=== PATIENT | female | born 1950 | race Hispanic/Latino ===

== ENCOUNTER 2018-03-19 10:52 | Inpatient (IN) | payer MEDICARE ==
[~2018-03-19 10:52] MED LIST: Iopamidol 370 76% 100 ML VIAL ONE; Iopamidol 370 76% 50 ML VIAL FS ONE
[2018-03-19 11:08] LABS: #Lymphocytes 0.7 thou/uL (1.20-3.40); #Monocytes 0.3 thou/uL (0.11-0.59); #Neutrophils 5.4 thou/uL (1.40-6.50); %Basophils 0.2 % (0.0-1.0); %Eosinophils 0.1 % (0.0-10.0); %Lymphocytes 10.3 % (21.0-51.0); %Monocytes 4.9 % (0.0-10.0); %Neutrophils 84.5 % (42.0-75.0); Hemoglobin 15.9 g/dL (12.0-16.0); Mean Corpuscular HGB CONC 32.6 g/dL (32.0-36.0); Mean Corpuscular Volume 89.2 fL (78.0-98.0); Mean Platelet Volume 8.5 fL (7.4-10.4); Platelet Count 236 thou/uL (130-400); RBC Distribution Width 11.8 % (11.5-14.5); Red Blood Cell (RBC) Count 5.46 mill/uL (4.20-5.40); White Blood Cell (WBC) Count 6.3 thou/uL (4.8-10.8)
[2018-03-19 11:14] LABS: INR-International Normal Ratio 1.1; Prothrombin Time 13.9 SEC (12.0-14.7)
[2018-03-19] MEDS ORDERED: Verapamil 5 MG/2 ML VIAL ONE (11:22)
[2018-03-19] MEDS ORDERED: Lidocaine 1% (PF) 30 ML VIAL ONE (11:22)
[2018-03-19] MEDS ORDERED: Nitroglycerin 100MG/250ML BOT 250 ML ONE (11:22)
[2018-03-19] MEDS ORDERED: Heparin 10,000 UNITS/1 ML VIAL ONE (11:22)
--- NOTE | 2018-03-19 11:26 | RAD ---
SINGLE VIEW OF THE CHEST: Comparison: None. History: Chest pain. FINDINGS: Single view of the chest shows a normal sized cardiomediastinal silhouette. There is no evidence of c onsolidation, mass, or pleural effusion. The bones are unremarkable. IMPRESSION: No evidence of acute cardiopulmonary disease. POS: TPC
[2018-03-19 11:50] LABS: ALT (SGPT) 16 U/L (8-55); AST (SGOT) 39 U/L (5-34); Albumin 4.1 g/dL (3.4-4.8); Alkaline Phosphatase 107 U/L (40-150); Anion Gap 18 mmol/L (10-20); BUN (Urea Nitrogen) 16 mg/dL (9.8-20.1); Calc. Creatinine Clearance 0 mL/min (70-130); Calcium 10.2 mg/dL (7.8-10.44); Carbon Dioxide 22 mmol/L (23-31); Chloride 98 mmol/L (98-107); Estimated GFR-MDRD 57; Globulin 3.8 g/dL (2.4-3.5); Glucose 446 mg/dL (80-115); Potassium 4.2 mmol/L (3.5-5.1); Protein, Total 7.9 g/dL (6.0-8.3); Sodium 134 mmol/L (136-145)
--- NOTE | 2018-03-19 11:56 | HP ---
DATE OF ADMISSION: 03/19/2018 INDICATION FOR ADMISSION: This is a 68-year-old female with acute anterior myocardial infarction. HISTORY OF PRESENT ILLNESS: This is a very unfortunate 68-year-old female, who has been incarcerated for the last 10-15 days. Woke up this morning around 07:00 with chest pain, actually it started in her shoulder area in the back on the left side and then radiated to the front. She was then seen in the emergency room. Actually, by the time she was in the emergency room and she was given some treat ment, her blood pressure was high, also blood sugar was over 500. Her pain is now resolved, but EKG changes still remain with ST-segment elevation anteriorly with reciprocal changes inferiorly, but at this time she is pain free. PAST MEDICAL HISTORY: Significant for a hysterectomy, cholecystectomy, and umbilical hernia repair. SOCIAL HISTORY: She is . She has 6 children. No heart disease. There is no history of alc ohol or tobacco abuse. FAMILY HISTORY: Noncontributory. No early heart disease was noted. ALLERGIES: Allergy to PENICILLIN. She was on no prior medications prior to being seen in the emerge ncy room. REVIEW OF SYSTEMS: A 12-point review of systems was completely unremarkable except for what was note d in the history of present illness with chest discomfort. PHYSICAL EXAMINATION: GENERAL: Reveals a well-developed, well-nourished female, in no acute distress at this time. VITAL SIGNS: Her blood pressure is 160/94 and heart rate is 85. HEENT EXAM: Shows her head to be normocephalic and atraumatic. Carotid pulses are present. There a re no bruits. CHEST: Clear to auscultation without rales, rhonchi, or wheezing. CARDIOVASCULAR EXAM: Reveals a regular rate and rhythm with normal S1 and S2. There is no S3 or S4. There are no significant murmurs, heaves, thrills, bruits, or rubs. ABDOMINAL EXAM: Soft and nontender with positive bowel sounds. No organomegaly or masses. Femoral pulses are present. EXTREMITIES: Showed no clubbing, cyanosis, or edema. Pedal pulses are also present. NEUROLOGIC EXAM: The patient appears to be fully intact with normal strength and tone. SKIN: Warm and dry. EKG shows a normal sinus rhythm with acute anterior myocardial infarction with ST-segment elevation i n V1 and V2, there is also what appears to be Q-wave in V1. At this time, we have planned for emerge nt cardiac catheterization to rule out evidence of significant coronary artery disease to see whether or not we can interrupt the myocardial infarction if this is what the patient is having. We do not have any enzymes back yet nor a BNP, but the blood sugar was over 500 according to the fingerstick an d her CBC shows a normal hemoglobin and hematocrit. I have explained the procedure and the risks to her to include bleeding, infection, possibly a myocardial infarction, cerebrovascular accident, renal insufficiency, allergic contrast reaction, and the possibility of . She understands and agrees to proceed. We will plan for emergent cardiac catheterization.
[2018-03-19 12:26] LABS: CKMB 18.7 ng/mL (0-6.6); Troponin I 1.286 ng/mL (< 0.028)
[2018-03-19] MEDS ORDERED: Dextrose 5% in Water 1,000 ML IV PRN (12:46)
[2018-03-19] MEDS ORDERED: Dextrose 50% Abboject 50 ML SYRINGE SLOW IVP PRN (12:46)
[2018-03-19] MEDS ORDERED: HumaLOG 300 UNITS/3 ML VIAL SC PRN (12:46)
[2018-03-19] MEDS ORDERED: Acetaminophen/Codeine 30-300mg Tablet PO PRN ×2 (14:11)
[2018-03-19] MEDS ORDERED: Nitroglycerin 0.4 MG TAB (25 Tab Bottle) SL PRN ×2 (14:11)
[2018-03-19] MEDS ORDERED: traMADol HCl 50 MG TAB PO PRN (14:11)
[2018-03-19] MEDS ORDERED: Sodium Chloride 0.9% 200 ML IV PRN (14:11)
[2018-03-19 14:39] VITALS: BMI 20.9
[2018-03-19] MEDS ORDERED: Aspirin 325 mg Enteric Coated Tablet PO SCH (15:00)
[2018-03-19 15:14] LABS: Troponin I 26.308 ng/mL (< 0.028)
[2018-03-19] MEDS ORDERED: Enoxaparin Sodium 60 MG/0.6 ML SYRINGE SC SCH (16:15)
[2018-03-19] MEDS ORDERED: Prevnar 13-Val Conj/PF 0.5 ML SYRINGE IM ONE (16:15)
[2018-03-19] MEDS: HumaLOG 300 UNITS/3 ML VIAL SC SCH ×2 (17:05→20:47)
[2018-03-19] MEDS: Metoprolol Tartrate 25 MG TAB PO SCH (18:03)
[2018-03-19 18:06] LABS: Troponin I 43.306 ng/mL (< 0.028)
[2018-03-19] MEDS: Atorvastatin Calcium 20 MG TAB PO SCH (20:42)
[2018-03-19] MEDS: Insulin Glargine 10 UNITS in Pre-Filled Syringe 1 EACH SC SCH (20:45)
--- NOTE | 2018-03-19 21:07 | CON ---
DATE OF CONSULTATION: 03/19/2018 REASON FOR CONSULTATION: Evaluate the patient for coronary artery bypass grafting. HISTORY OF PRESENT ILLNESS: Ms. Santos is a 68-year-old woman who was admitted with chest pain today. She was incarcerated for the previous 10-15 days. She was brought to the emergency room. Her blood pressure was elevated. Her blood sugars were over 500. She states that she knows she has diabetes mellitus. She does not have a doctor. She has been given sugar medicine by her friend and that is h ow she has managed her blood sugars at home. She does not follow them. She has no recent hemoglobin A1c. She was taken to the phlebotomy lab assistant and found to have severe 3-vessel disease. Her LAD and circumfl ex arteries are probably chronically occluded. She has a severe stenosis of the right coronary arter y. Currently, she is resting comfortably and chest pain free in the ICU. PAST MEDICAL HISTORY: 1. Diabetes mellitus. 2. Hypertension. PAST SURGICAL HISTORY: 1. Hysterectomy. 2. Cholecystectomy. 3. Umbilical hernia repair. SOCIAL HISTORY: She is . She has 6 children. She does not have a history of alcohol or tob acco abuse. ALLERGIES: PENICILLIN. HOME MEDICATIONS: None. REVIEW OF SYSTEMS: Not performed due to patient's unreliable history. PHYSICAL EXAMINATION: GENERAL: This is a diminutive woman resting comfortably in ICU. VITAL SIGNS: Height 5 feet 9 inches, weight 141 pounds, BSA is 1.77, temperature is 98.0, pulse is 7 5 and regular, blood pressure is 156/87 and oxygen saturation is 100% on room air. HEENT: Pupils are equal and round bilaterally. NECK: Supple, without carotid bruit. CHEST: Clear bilaterally. HEART: Rhythm is regular. ABDOMEN: Soft, nontender. EXTREMITIES: No edema. VASCULAR: She has palpable carotid, radial, femoral pulses bilaterally. I reviewed the films and have discussed the case with Dr. Rubin. I think that her best option at a tr eatment and recovery is to stent her right coronary. I do not think bypassing the occluded LAD would help as the areas likely scarred. Her OM is also chronically occluded with no bypassable target.
--- NOTE | 2018-03-19 23:52 | CON ---
DATE OF CONSULTATION: 03/19/2018 CONSULTING PHYSICIAN: Dr. Rubin, cardiology service. PURPOSE: Management of diabetes. HISTORY OF PRESENT ILLNESS: The patient is a 68-year-old female who was admitted [facility] on the for acute myocardial infarction. She was taken to the oven laborer and was found to torres ve diffuse coronary disease and the Cardiology recommended CABG. The patient was seen by Dr. Karthik higgins or thoraco-surgical evaluation and he feels that the patient might need stenting instead of CABG, but we are consulted by Dr. Rubin for diabetic management. Apparently, she is not really taking any medi cations at home. She is a diabetic and she is not having much funds to buy medicine. 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 PAST MEDICAL HISTORY: Positive for: 1. Diabetes mellitus. 2. Lupus diagnosed more than 25 years ago. PAST SURGICAL HISTORY: 1. Hysterectomy. 2. Cholecystectomy. 3. Umbilical hernia repair. SOCIAL HISTORY: She does not have any history of cigarette smoking, alcohol intake, or use any illic it drugs. FAMILY HISTORY: Father had [place] and diabetes. He at the age of 65 and mother had aneurysm of the brain, which costs CVA and she passed 2 years after that in her early 70s. ALLERGIES: PENICILLIN. MEDICATIONS: Tylenol No.3 q.4 hours p.r.n., aspirin 325 mg daily, Lipitor 20 mg at bedtime, IV fluid s D5 water 1000 mL p.r.n. as directed 60 mg of Lovenox every 12 hours, sliding scale moderate with re gular insulin, lisinopril 2.5 mg once a day, metoprolol 12.5 mg twice a day, nitroglycerin 0.4 mg sub lingually every 5 minutes p.r.n. for the chest pain. PHYSICAL EXAMINATION: VITAL SIGNS: Blood pressure is 158/95, pulse is 88, respiratory rate is 15, and pulse oximetry 99% o n room air. HEENT: Head is atraumatic, normocephalic. She is comfortable. She does not have any pain or discom fort at the time of my evaluation. Eyes are PERRLA. Sclerae nonicteric. Oral mucosa is somewhat dr y. NECK: Supple. LUNGS: Clear. HEART: S1, S2, somewhat distant. No S3, no S4. ABDOMEN: Soft, nontender, nondistended. Bowel sounds are present, no organomegaly. EXTREMITIES: No clubbing, cyanosis, or edema. NEUROLOGIC: She is alert and oriented x4. There is not any sensorimotor deficit present. Cranial n erves are intact. Point of entry with right wrist. There is not any complication at the site of ent ry. LABORATORY AND X-RAY FINDINGS: Showed white count of 6.3, hemoglobin 15.9, hematocrit 48.7, platelet count is 236,000. INR 1.1, PT of 13.9, APTT 26.0. Sodium of 134, potassium 4.2, chloride 98, CO2 o f 22, BUN 16, creatinine 0.97, glucose 446 then 321 and 247. Last Accu-Chek AST up to 39 and normal ALT, normal alkaline phosphatase. Troponins 1.286 and the second set was 26.3. CK-MB was 18.7, glob ulin 3.[address]KG [address] elevated ST segment in precordial leads in V1 and V2. Chest x-ray done at th e time of admission did not show any acute cardiopulmonary disease. The cardiac catheterization repo rt showed estimated ejection fraction of the left ventricle 25%, multivessel coronary artery disease with disease of the left anterior descending coronary artery, left circumflex coronary artery, and ri ght coronary artery, LAD 100% proximal was filling distally by RCA. Left circumflex proximal 30%, OM 2 90%, proximal distal 100% to left collaterals, RCA mid 95%-99%, PDA 90%. ASSESSMENT AND PLAN: 1. Multivessel coronary artery disease surgery. Surgery recommend stenting. Dr. Angeles saw the arelis ent and he does not recommend coronary artery bypass grafting. 2. Uncontrolled diabetes. Patient has diabetes for a long time, but she never checked her glucose a t home and she never goes to any doctor. She does not have any primary physician. She will have to establish herself with primary doctor. She is willing to do that and she is willing to take medicati ons as long as they are not expensive. We will start her on 10 units of long-acting insulin Lantus a t bedtime and we will change her Accu-Cheks to a.c. and at bedtime. She is going to be started on li quid diet this supper. 3. Acute myocardial infarction ST-segment elevation, status post cardiac catheterization as mentione d above on full dose of low molecular weight heparin. We will continue that per primary beater worker helper . We will continue the rest of the regimen per primary service and will monitor her closely in the I ntensive Care Unit overnight, and she will be able probably to go to the lower level of care tomorrow to telemetry floor and I agree with current regimen. Thank you very much for allowing me to see the patient.
[2018-03-20 05:14] LABS: #Basophils 0.1 thou/uL (0.0-0.2); #Monocytes 0.7 thou/uL (0.11-0.59); #Neutrophils 4.7 thou/uL (1.40-6.50); %Basophils 0.8 % (0.0-1.0); %Eosinophils 0.4 % (0.0-10.0); %Lymphocytes 15.5 % (21.0-51.0); %Monocytes 10.2 % (0.0-10.0); %Neutrophils 73.1 % (42.0-75.0); Hemoglobin 15.1 g/dL (12.0-16.0); Mean Corpuscular HGB CONC 32.3 g/dL (32.0-36.0); Mean Corpuscular Hemoglobin 29.1 pg (27.0-31.0); Mean Corpuscular Volume 90.3 fL (78.0-98.0); Mean Platelet Volume 8.3 fL (7.4-10.4); Platelet Count 226 thou/uL (130-400); RBC Distribution Width 11.7 % (11.5-14.5); Red Blood Cell (RBC) Count 5.19 mill/uL (4.20-5.40); White Blood Cell (WBC) Count 6.4 thou/uL (4.8-10.8)
[2018-03-20 05:36] LABS: ALT (SGPT) 28 U/L (8-55); AST (SGOT) 133 U/L (5-34); Albumin 3.7 g/dL (3.4-4.8); Alkaline Phosphatase 85 U/L (40-150); Anion Gap 15 mmol/L (10-20); BUN (Urea Nitrogen) 12 mg/dL (9.8-20.1); Calc. Creatinine Clearance 74 mL/min (70-130); Calcium 9.4 mg/dL (7.8-10.44); Carbon Dioxide 23 mmol/L (23-31); Cardiac Risk 4.6 (Less than 4.5); Chloride 100 mmol/L (98-107); Cholesterol 235 mg/dl (< 200 Desired); Estimated GFR-MDRD 76; Globulin 3.3 g/dL (2.4-3.5); Glucose 206 mg/dL (80-115); HDL Cholesterol 51 mg/dL (>60 Neg Risk); LDL Cholesterol, Calculated 147 mg/dL; Potassium 3.6 mmol/L (3.5-5.1); Sodium 134 mmol/L (136-145); Triglycerides 186 mg/dL (Less than 150)
[2018-03-20 05:40] LABS: Critical Call Chem Troponin I RESULT DECREASING; Troponin I 28.219 ng/mL (< 0.028)
[2018-03-20] MEDS: Lisinopril 2.5 MG TAB PO SCH (09:06)
[2018-03-20] MEDS: Enoxaparin Sodium 60 MG/0.6 ML SYRINGE SC SCH ×2 (09:07→21:00)
[2018-03-20] MEDS: Aspirin 325 mg Enteric Coated Tablet PO SCH (09:07)
[2018-03-20] MEDS: Metoprolol Tartrate 25 MG TAB PO SCH ×2 (09:07→20:59)
--- NOTE | 2018-03-20 10:08 | PRG ---
DATE OF SERVICE: 03/20/2018 SUBJECTIVE: The patient was seen and examined at bedside. She is in ICU bed 4. She does not have m [facility] complaints to offer. She feels good. OBJECTIVE: VITAL SIGNS: Blood pressure is 116/67, pulse is 82, respiratory rate is 19, pulse oximetry is 100% o n room air. HEENT: Head is atraumatic, normocephalic. Eyes are PERRLA. Sclerae nonicteric. Oral mucosa is nieves st. NECK: Supple, no lymphadenopathy. Thyroid is not palpable. LUNGS: Clear. HEART: S1, S2, slightly distant. No S3, no S4. ABDOMEN: Soft, nontender. Bowel sounds are present, no organomegaly. EXTREMITIES: No clubbing, cyanosis or edema. NEUROLOGIC: She is alert and oriented x4. There is not any motor or sensory deficits present. Cran ial nerves are intact. LABORATORY DATA: Sodium of 134, potassium 3.6, chloride 100, CO2 23, BUN 12, creatinine 0.76. Glyce amira is ranging from 206-247, AST elevated at 133. Troponin is up to 28.219, which is actually down f rom 43.3, triglycerides 186 and total cholesterol is 235. The rest of chemistry is within normal peterson its. IMPRESSION: 1. Acute myocardial infarction, ST segment elevation status post cardiac catheterization with multi- vessel disease. The patient was seen by Dr. Angeles who recommends stenting. No coronary artery bypas s graft. The patient is going for viability of cardiac muscle scan this morning. She will be transf erred to the telemetry floor and based on those findings Dr. Rubin will make decision whether she will have any stents placed. 2. Uncontrolled diabetes. She was started on 10 units of long-acting insulin at bedtime. We will m mariah some adjustment as needed on her insulin coverage. We will continue current regimen. 3. Multivessel coronary artery disease. Surgery was recommended, but cardiovascular surgeon disagre ed. So the plan is, as I mentioned, scanning today, transfer to telemetry. Continue current regimen with statin, aspirin full dose of Lovenox, lisinopril, metoprolol tartrate, and nitroglycerin p.r.n. She will continue her 10 units of insulin Glargine plus Accu-Cheks a.c. and at bedtime and a slidin g scale.
[2018-03-20] MEDS: HumaLOG 300 UNITS/3 ML VIAL SC SCH ×4 (12:11→21:25)
[2018-03-20] MEDS: Atorvastatin Calcium 20 MG TAB PO SCH (21:00)
[2018-03-20] MEDS: Insulin Glargine 10 UNITS in Pre-Filled Syringe 1 EACH SC SCH (21:04)
[2018-03-21 05:49] LABS: Hemoglobin 14.1 g/dL (12.0-16.0); Platelet Count 207 thou/uL (130-400)
[2018-03-21] MEDS: Aspirin 325 mg Enteric Coated Tablet PO SCH (09:39)
[2018-03-21] MEDS: Lisinopril 2.5 MG TAB PO SCH (09:40)
[2018-03-21] MEDS: Metoprolol Tartrate 25 MG TAB PO SCH ×2 (09:42→22:10)
[2018-03-21] MEDS: Enoxaparin Sodium 60 MG/0.6 ML SYRINGE SC SCH ×2 (09:43→21:53)
[2018-03-21] MEDS: HumaLOG 300 UNITS/3 ML VIAL SC SCH ×4 (09:44→21:09)
--- NOTE | 2018-03-21 10:57 | PRG ---
DATE OF SERVICE: 03/21/2018 SUBJECTIVE: The patient is seen and examined at bedside. She has some complaints about her right ar m pain and inability to close her fist this morning when she woke up, but now she is able to do that and her pain in her arm has improved. She thinks that this is related to the insulin shot she got in to her arm yesterday. OBJECTIVE: VITAL SIGNS: Blood pressure is 134/88, pulse is 66, temperature 98.2, respiratory rate is 16, O2 sat uration 97% on room air. HEENT: Head is atraumatic, normocephalic. Eyes are PERRLA. Sclerae nonicteric. Oral mucosa is nieves st. NECK: Supple, no lymphadenopathy. Thyroid is not palpable. LUNGS: Breath sounds, slightly diminished at both bases, no crackles, no wheezing. HEART: S1, S2 normal, no S3, no S4. ABDOMEN: Soft, nontender, nondistended. Bowel sounds are present, no organomegaly. EXTREMITIES: No clubbing, cyanosis or edema. NEUROLOGIC: She is alert and oriented x4. There is not any motor deficits. Cranial nerves are inta ct. There is small area of redness on her right wrist close to the point of entry for cardiac cathet erization, but the point of entry looks slightly bruised, but not inflamed and she is able to make a fist now. Neurological examination did not show any abnormalities. LABORATORY DATA: Showed a hemoglobin of 14.1, hematocrit 43.5, platelet count 207,000. Creatinine 0 .68. Glycemia is from 169-369. Echocardiogram report showed ejection fraction of 25-30%, anterior wall and apex were akinetic with s ome diastolic dysfunction, normal right ventricular systolic and size normal, the left atrium normal. The right atrium is normal. Aortic valve had mild valvular regurgitations on aortic and bicuspid a nd pulmonic valves IMPRESSION: 1. Acute myocardial infarction, ST segment elevation, status post cardiac catheterization with multi -vessel disease. The patient is in the process of getting the second day nuclear testing of her myoc ardial viability. This is done to know whether she would benefit from stenting of her right coronary artery. Dr. Rubin will make decision about that. 2. Uncontrolled diabetes mellitus, improved with current regimen. We will increase her insulin to 1 5 units at the bedtime plus sliding scale. 3. Multivessel coronary artery disease. 4. Cardiomyopathy, most likely ischemic. PLAN: Continue her current testing. Continue her atorvastatin and aspirin. She is on full dose of Lovenox 60 mg twice a day. We will continue lisinopril, metoprolol, and p.r.n. tramadol.
--- NOTE | 2018-03-21 20:34 | NM ---
THALLIUM MYOCARDIAL PERFUSION SCAN: Radiopharmaceutical: 3.6 mCi Thallium 201 Indication: History of prior PA. FINDINGS: There is circumferential uptake of radiotracer within the left ventricle. There is slight diminished radiotracer activity involving the anterior and anteroseptal wall which could be related to overlying soft tissue attenuation. There are persistent areas of activity seen involving the left ventricle on the 24 hour delayed images. IMPRESSION: No perfusion defect grossly demonstrated. Mild diminished activity involving the anterior septal wall and anterior wall likely related to overlying soft tissue attenuation. POS: ALOK
[2018-03-21] MEDS: Insulin Glargine 15 UNITS in Pre-Filled Syringe 1 EACH SC SCH (21:09)
[2018-03-21] MEDS: Atorvastatin Calcium 20 MG TAB PO SCH (21:09)
--- NOTE | 2018-03-22 08:30 | PDOC.CTH ---
Cardiology Progress Note - Subjective No new complaints. No chest pain.No new events. - Objective Vital Signs Temp Pulse Resp BP Pulse Ox 03/22/18 03:39 97.8 F 78 19 115/70 97 Weight 145 lb 9.6 oz 03/21/18 03/22/18 03/23/18 06:59 06:59 06:59 Intake Total 500 Output Total 300 Balance 200 - Physical Examination General/Neuro: alert & oriented x3 Neck: no JVD present Lungs: CTA Heart: RRR Abdomen: NT/ND - Telemetry Telemetry Rhythm: NSR - Labs Result Diagrams: 03/21/18 04:42 03/21/18 04:42 Troponin/CKMB CK-MB (CK-2) 18.7 ng/mL (0-6.6) H* 03/19/18 10:58 Troponin I 28.219 ng/mL (< 0.028) H* 03/20/18 04:27 - Assessment/Plan 1. CAD. s/p NE. Acute culprit-occlusion of distal Lcirc-OM. 3 vessel CAD. LAD 100%. appeared to be chronic. Retrograde filling from the RCA., RCA-90-95% occluded. Viability study indicated the anterior wall is viable. May indicated hybernating myocardium. Will rediscuss possibility of CABG. 2. CMY. Ischemic. Continue medical treatment. May improve after revascularization. 3. DM. Noncompliant with treatment in the past. 4. HTN. Stable. 5. Obesity.
[2018-03-22] MEDS: HumaLOG 300 UNITS/3 ML VIAL SC SCH ×3 (11:30→21:58)
[2018-03-22] MEDS: Metoprolol Tartrate 25 MG TAB PO SCH ×2 (13:38→21:57)
[2018-03-22] MEDS: Lisinopril 2.5 MG TAB PO SCH (13:39)
--- NOTE | 2018-03-22 13:41 | PRG ---
DATE OF SERVICE: 03/22/2018 SUBJECTIVE: The patient is seen and examined at the bedside. She is doing very well. She does not have much complaint to offer. There is no chest pain, no shortness of breath. She ate her food. To day, she is n.p.o. because Dr. Rubin was planning to do the stenting. OBJECTIVE: VITAL SIGNS: Blood pressure is 162/79, pulse is 78, temperature is 98.7, respiratory rate is 17, O2 saturations 97% on room air. HEENT: Atraumatic, normocephalic. Eyes are PERRLA, sclerae is nonicteric. Oral mucosa is moist. NECK: Supple, no lymphadenopathy. Thyroid is not palpable. LUNGS: Clear. HEART: S1, S2 normal, no S3, no S4. ABDOMEN: Soft, nontender, nondistended. EXTREMITIES: No clubbing, cyanosis or edema. NEUROLOGIC: She is alert and oriented x4. There is no motor or sensory deficit. Cranial nerves are intact. LABORATORY DATA: Showed glycemia is ranging from 163-309. Myocardial perfusion nuclear medicine sca n showed no perfusion defect across the demonstrated mild diminished activity involving the anterior septal wall and anterior wall, likely related to overlying soft tissue attenuation. IMPRESSION: 1. Acute myocardial infarction, ST segment elevation status post cardiac catheterization with multi- vessel disease. The patient underwent myocardial viability testing which came back quite normal and Dr. Rubin, the stock shipper during this admission is considering a reconsult of Dr. Angeles for possible coronary artery bypass grafting. If he does not think this patient needs that, would benefit from t his, she is planning to [facility] for coronary artery bypass grafting. 2. Uncontrolled diabetes mellitus which is gradually improving. She is on 15 units of long-acting i nsulin and we will increase the dose to 20. 3. Multivessel coronary artery disease. 4. Cardiomyopathy with negative scan for ischemia. PLAN: As mentioned above. We are waiting for Dr. Angeles to make decision.
[2018-03-22] MEDS: Aspirin 325 mg Enteric Coated Tablet PO SCH (13:44)
[2018-03-22] MEDS: Enoxaparin Sodium 60 MG/0.6 ML SYRINGE SC SCH ×2 (13:44→21:57)
[2018-03-22] MEDS: Insulin Glargine 15 UNITS in Pre-Filled Syringe 1 EACH SC SCH (21:56)
[2018-03-22] MEDS: Atorvastatin Calcium 20 MG TAB PO SCH (21:57)
[2018-03-23 05:32] LABS: Hemoglobin 14.2 g/dL (12.0-16.0); Platelet Count 193 thou/uL (130-400)
[2018-03-23 06:12] LABS: Calc. Creatinine Clearance 90 mL/min (70-130); Estimated GFR-MDRD Greater than 90
[2018-03-23] MEDS: Aspirin 325 mg Enteric Coated Tablet PO SCH (08:03)
[2018-03-23] MEDS: Enoxaparin Sodium 60 MG/0.6 ML SYRINGE SC SCH (08:03)
[2018-03-23] MEDS: Metoprolol Tartrate 25 MG TAB PO SCH (08:04)
[2018-03-23] MEDS: Lisinopril 2.5 MG TAB PO SCH (08:04)
[2018-03-23] MEDS: HumaLOG 300 UNITS/3 ML VIAL SC SCH (08:10)
[2018-03-23 11:14] VITALS: BP 138/64; TEMP 98.5
--- NOTE | 2018-03-23 12:31 | PDOC.PN ---
- Subjective Encounter Start Date: 03/23/18 Encounter Start Time: 10:00 Subjective: no chest pain or sob -: feels better -: sitting in chair - Objective Resuscitation Status: Resuscitation Status FULL:Full Resuscitation MAR Reviewed: Yes Vital Signs & Weight: Vital Signs (12 hours) Temp Pulse Resp BP Pulse Ox 03/23/18 11:14 98.5 F 72 16 138/64 98 03/23/18 08:03 95 03/23/18 07:59 97.7 F 69 16 125/69 95 03/23/18 05:09 98.4 F 78 20 136/63 98 Weight Weight 140 lb 14.4 oz Most Recent Monitor Data Heart Rate from ECG 71 NIBP 117/70 NIBP BP-Mean 85 Respiration from ECG 14 SpO2 99 I&O: 03/22/18 03/23/18 03/24/18 06:59 06:59 06:59 Intake Total 960 Output Total 500 Balance 460 Result Diagrams: 03/23/18 05:04 03/23/18 05:04 Additional Labs: Accuchecks 03/23/18 03/22/18 03/22/18 05:58 20:58 17:05 POC Glucose 127 H 227 H 242 H Phys Exam - Physical Examination HEENT: PERRLA, moist MMs Neck: no JVD, supple Respiratory: no wheezing, no rales Cardiovascular: RRR, no significant murmur Gastrointestinal: soft, non-tender, positive bowel sounds Musculoskeletal: no edema, pulses present Neurological: non-focal, moves all 4 limbs Psychiatric: normal affect, A&O x 3 Dx/Plan (1) CAD (coronary artery disease) Code(s): I25.10 - ATHSCL HEART DISEASE OF [place] CORONARY ARTERY W/O ANG PCTRS Status: Acute Qualifiers: Coronary Disease-Associated Artery/Lesion type: [place] artery [place] vs. transplanted heart: [place] heart Comment: had multivessel disease (2) Acute [place] Code(s): I21.9 - ACUTE MYOCARDIAL INFARCTION, UNSPECIFIED Status: Acute Qualifiers: Myocardial infarction type: ST elevation myocardial infarction (3) DM type 2 (diabetes mellitus, type 2) Status: Chronic Qualifiers: Diabetes mellitus jail insulin use: with jail use Diabetes mellitus complication status: with unspecified complications Qualified Code(s) : E11.8 - Type 2 diabetes mellitus with unspecified complications; Z79.4 - intermediate (current) use of insulin (4) HTN (hypertension) Code(s): I10 - ESSENTIAL (PRIMARY) HYPERTENSION Status: Chronic Qualifiers: Hypertension type: essential hypertension Qualified Code(s): I10 - Essential (primary) hypertension (5) Dyslipidemia Code(s): E78.5 - HYPERLIPIDEMIA, UNSPECIFIED Status: Chronic - Plan is being tx to [place] for cabg -: has multivessel complicated disease -: hemostable -: on asp, lip, lovenox, lopressor, lisinopril and lantus * .
--- NOTE | 2018-03-24 16:26 | DIS ---
DATE OF ADMISSION: 03/19/2018 DATE OF DISCHARGE: 03/23/2018 DISCHARGE DISPOSITION: To [place] for higher level of care. PRIMARY DISCHARGE DIAGNOSES: Multivessel coronary artery disease for CABG, acute myocardial infarction. SECONDARY DISCHARGE DIAGNOSES: Diabetes mellitus type 2, hypertension, dyslipidemia. PROCEDURES DONE DURING HOSPITALIZATION: Patient has had a coronary angiogram done for STEMI activation for anterior wall FL, which showed multivessel coronary artery disease. Ejection fraction was 25% disease of LAD, left circumflex RCA. LAD 100% proximal, left circumflex proximal 30%, OM2 90% proximal, distal 100%, RCA mid 95%-99%, PDA was 90%. Echo with 2D Doppler showed EF of 25%-30%, anterior wall and apex were akinetic with diastolic dysfunction. Thallium myocardial perfusion scan done showed no perfusion defect grossly demonstrated, mild diminished activity involving the anterior septal wall and anterior wall, likely related to overlying soft tissue attenuation, hemoglobin and hematocrit 14 and 43, platelet count 193. Troponin I was elevated, peaking up to 43.30 with first set of 1.28, CK-MB 18.7, creatinine on the day of discharge 0.6, total cholesterol 235, triglycerides 186 , LDL 147, HDL 51. DISCHARGE MEDICATIONS: Lisinopril 2.5 mg p.o. daily, Lopressor 12.5 mg p.o. twice daily, Lantus 15 units subcu at bedtime, Lovenox 60 mg subcutaneous q.12 hours, Lipitor 20 mg p.o. at bedtime, aspirin 325 mg p.o. daily. ALLERGIES: PENICILLIN. DISCHARGE PLAN: Patient is being discharged to higher level of care in [place] for CABG. BRIEF COURSE DURING HOSPITALIZATION: Patient initially got admitted on the with complaints of chest pain and with STEMI activation for anterior wall FL. She was taken for cardiac catheterization by Dr. Rubin. Catheterization revealed multivessel coronary artery disease. EF was 20%-25% as well. The patient has had consultation with Dr. Angeles for Cardiothoracic Surgery. There was question of anterior wall being viable. She has had a thallium perfusion scan done, results I have described above. In view of multiple vessel disease with questionable anterior wall perfusion issue, patient is being transferred to higher level of care in [place] for CABG. She is otherwise asymptomatic at the time of discharge. Please see a [id number] documentation on [facility] for the day of discharge. [facility]
== END 2018-03-23 11:20 | disposition short-term general hospital (02) | DRG 281 ==
LOC: ERS 10:52 → CCU 11:14 → CCL 11:14 → CCU 14:02 → 2NO 03-20 13:26
PROVIDERS: ADMIT Internal Medicine Cardiovascular Disease; ATTEND Internal Medicine Cardiovascular Disease
PROC: 4A023N7 Measurement of Cardiac Sampling and Pressure, Left Heart, Percutaneous Approach (ICD-10-PCS; principal; 2018-03-19)
PROC: B2111ZZ Fluoroscopy of Multiple Coronary Arteries using Low Osmolar Contrast (ICD-10-PCS; 2018-03-19)
PROC: B2151ZZ Fluoroscopy of Left Heart using Low Osmolar Contrast (ICD-10-PCS; 2018-03-19)
DX: I21.09 ST elevation (STEMI) myocardial infarction involving other coronary artery of anterior wall (principal); I42.9 Cardiomyopathy, unspecified; E11.65 Type 2 diabetes mellitus with hyperglycemia; I25.119 Atherosclerotic heart disease of native coronary artery with unspecified angina pectoris; I10 Essential (primary) hypertension; E78.5 Hyperlipidemia, unspecified; Z88.0 Allergy status to penicillin; Z79.82 Long term (current) use of aspirin; Z79.4 Long term (current) use of insulin; M32.9 Systemic lupus erythematosus, unspecified
CPT/HCPCS: 36415; 36416; 71045; 78466; 80053; 80061; 82553; 82565; 84484; 85014; 85018; 85025; 85049; 85610; 85730; 93005; 93306; 93458; 94760; A9505; C1769; J1644; J1650; J2001

== ENCOUNTER 2023-07-02 07:17 | Emergency (ER) | payer MEDICARE ==
[2023-07-02] MEDS ORDERED: Dexamethasone 10 MG/ML VIAL ONE (09:01)
[2023-07-02 09:04] LABS: SARS-CoV-2 NAA Rapid Test Not Detected (NotDetected)
== END 2023-07-02 09:22 | disposition home or self-care (01) ==
LOC: ERS 07:17
DX: J20.9 Acute bronchitis, unspecified (principal); E11.9 Type 2 diabetes mellitus without complications; M32.9 Systemic lupus erythematosus, unspecified; I25.2 Old myocardial infarction
CPT/HCPCS: 0240U; 71046; J1100

== ENCOUNTER 2023-07-16 16:05 | Inpatient (IN) | payer MEDICARE ==
[2023-07-16 18:15] VITALS: BMI 35.1
[2023-07-16] MEDS ORDERED: Ondansetron ODT 4 MG TAB PO PRN (21:52)
[2023-07-16] MEDS ORDERED: Dextrose 50% Abboject 50 ML SYRINGE SLOW IVP PRN (21:54)
[2023-07-16] MEDS ORDERED: Glucagon 1 MG/ML KIT IM PRN (21:54)
[2023-07-16] MEDS ORDERED: Dextrose 5% in Water 1,000 ML IV PRN (21:54)
[2023-07-16] MEDS: HumaLOG 300 UNITS/3 ML VIAL SC PRN (22:25)
[2023-07-16 22:45] LABS: #Basophils 0.1 thou/uL (0.0-0.2); #Eosinphils 0.2 thou/uL (0.0-0.7); #Monocytes 0.5 thou/uL (0.11-0.59); #Neutrophils 4.3 thou/uL (1.40-6.50); %Eosinophils 2.6 % (0.0-10.0); %Lymphocytes 16.6 % (21.0-51.0); %Monocytes 8.9 % (0.0-10.0); %Neutrophils 70.2 % (42.0-75.0); Hematocrit 38.9 % (36.0-47.0); Hemoglobin 12.7 g/dL (12.0-16.0); Mean Corpuscular HGB CONC 32.6 g/dL (32.0-36.0); Mean Corpuscular Hemoglobin 29.1 pg (27.0-31.0); Mean Platelet Volume 10.4 fL (7.4-10.4); Platelet Count 283 10x3/uL (130-400); RBC Distribution Width 13.2 % (11.5-14.5); Red Blood Cell (RBC) Count 4.37 mill/uL (4.20-5.40); White Blood Cell (WBC) Count 6.1 10x3/uL (4.8-10.8)
[2023-07-16 23:01] LABS: Hemoglobin A1c 13.5 % (4.0-6.0)
[2023-07-16 23:05] LABS: ALT (SGPT) 12 U/L (8-55); AST (SGOT) 18 U/L (5-34); Albumin 3.2 g/dL (3.4-4.8); Alkaline Phosphatase 94 U/L (40-110); Anion Gap 13 mmol/L (10-20); BUN (Urea Nitrogen) 12 mg/dL (9.8-20.1); Bilirubin, Total 0.4 mg/dL (0.2-1.2); Calc. Creatinine Clearance 52 mL/min (70-130); Calcium 9.3 mg/dL (7.8-10.44); Carbon Dioxide 28 mmol/L (23-31); Chloride 101 mmol/L (98-107); Estimated GFR 47; Globulin 3.6 g/dL (2.4-3.5); Glucose 391 mg/dL (83-110); Magnesium 1.8 mg/dL (1.6-2.6); Potassium 3.6 mmol/L (3.5-5.1); Protein, Total 6.8 g/dL (5.8-8.1); Sodium 138 mmol/L (136-145)
[2023-07-16 23:07] LABS: Troponin I 0.067 ng/mL (< 0.028)
[2023-07-17 01:08] LABS: Troponin I 0.076 ng/mL (< 0.028)
[2023-07-17 04:16] LABS: Troponin I 0.082 ng/mL (< 0.028)
[2023-07-17] MEDS: Furosemide 40 MG (4 mL) VIAL SLOW IVP SCH (05:56)
[2023-07-17] MEDS: HumaLOG 300 UNITS/3 ML VIAL SC PRN (05:56)
[2023-07-17] MEDS ORDERED: hydrALAZINE 20 MG/ML VIAL SLOW IVP PRN (07:37)
[2023-07-17] MEDS: Insulin Glargine 30 UNITS/0.3 ML VIAL SC SCH (08:31)
[2023-07-17] MEDS: Famotidine 20 MG TAB PO SCH (08:33)
[2023-07-17] MEDS: Aspirin 325 mg Enteric Coated Tablet PO SCH (08:33)
[2023-07-17] MEDS: Lisinopril 5 MG TAB PO SCH (08:33)
[2023-07-17] MEDS: Metoprolol Tartrate 25 MG TAB PO SCH (08:33)
[2023-07-17] MEDS: Acetaminophen 325 MG TAB PO PRN (08:35)
[2023-07-17] MEDS ORDERED: Lisinopril 2.5 MG TAB PO SCH ×2 (09:00)
[2023-07-17 15:41] LABS: Troponin I 0.074 ng/mL (< 0.028)
[2023-07-17] MEDS: Atorvastatin Calcium 20 MG TAB PO SCH (19:59)
[2023-07-17] MEDS ORDERED: Insulin Glargine 30 UNITS/0.3 ML VIAL SC SCH (21:00)
[2023-07-18 05:48] LABS: #Monocytes 0.6 thou/uL (0.11-0.59); #Neutrophils 4.6 thou/uL (1.40-6.50); %Basophils 0.5 % (0.0-1.0); %Lymphocytes 19.4 % (21.0-51.0); %Monocytes 9.2 % (0.0-10.0); %Neutrophils 70.6 % (42.0-75.0); Hematocrit 39.5 % (36.0-47.0); Hemoglobin 12.5 g/dL (12.0-16.0); Mean Corpuscular HGB CONC 31.6 g/dL (32.0-36.0); Mean Corpuscular Hemoglobin 28.4 pg (27.0-31.0); Mean Corpuscular Volume 89.8 fl (78.0-98.0); Mean Platelet Volume 10.9 fL (7.4-10.4); Platelet Count 275 10x3/uL (130-400); RBC Distribution Width 13.4 % (11.5-14.5); White Blood Cell (WBC) Count 6.5 10x3/uL (4.8-10.8)
[2023-07-18 06:22] LABS: Anion Gap 13 mmol/L (10-20); BUN (Urea Nitrogen) 25 mg/dL (9.8-20.1); Calc. Creatinine Clearance 57 mL/min (70-130); Calcium 9.1 mg/dL (7.8-10.44); Carbon Dioxide 25 mmol/L (23-31); Chloride 103 mmol/L (98-107); Estimated GFR 57; Glucose 110 mg/dL (83-110); Potassium 3.3 mmol/L (3.5-5.1); Sodium 138 mmol/L (136-145)
[2023-07-18 07:00] LABS: Magnesium 2.2 mg/dL (1.6-2.6)
[2023-07-18] MEDS: Enoxaparin 40 MG (0.4 mL) SYRINGE SC SCH (09:21)
[2023-07-18] MEDS: Famotidine 20 MG TAB PO SCH (09:22)
[2023-07-18] MEDS: Potassium Chloride 20 MEQ TAB PO SCH (09:22)
[2023-07-19 05:24] LABS: Anion Gap 14 mmol/L (10-20); BUN (Urea Nitrogen) 25 mg/dL (9.8-20.1); Calc. Creatinine Clearance 49 mL/min (70-130); Calcium 8.9 mg/dL (7.8-10.44); Carbon Dioxide 27 mmol/L (23-31); Chloride 104 mmol/L (98-107); Estimated GFR 47; Glucose 104 mg/dL (83-110); Potassium 4.2 mmol/L (3.5-5.1); Sodium 141 mmol/L (136-145)
[2023-07-19 15:46] VITALS: BP 110/53; TEMP 97.9
== END 2023-07-19 17:50 | disposition home or self-care (01) | DRG 280 ==
LOC: 2SW 17:43 → OBSVTOIN 07-18 08:18
PROVIDERS: ADMIT Family Medicine; ATTEND Internal Medicine
DX: I11.0 Hypertensive heart disease with heart failure (principal); I50.23 Acute on chronic systolic (congestive) heart failure; I21.A1 Myocardial infarction type 2; E11.9 Type 2 diabetes mellitus without complications; M32.9 Systemic lupus erythematosus, unspecified; R79.89 Other specified abnormal findings of blood chemistry; I25.10 Atherosclerotic heart disease of native coronary artery without angina pectoris; E87.6 Hypokalemia; G47.33 Obstructive sleep apnea (adult) (pediatric); Z88.0 Allergy status to penicillin; Z79.899 Other long term (current) drug therapy; Z90.710 Acquired absence of both cervix and uterus; Z90.49 Acquired absence of other specified parts of digestive tract; Z98.890 Other specified postprocedural states; Z95.1 Presence of aortocoronary bypass graft; Z91.148 Patient's other noncompliance with medication regimen for other reason
CPT/HCPCS: 36415; 36416; 71045; 80048; 83036; 83735; 83880; 84145; 84443; 84484; 85025; 93306; 93798; J1650; J1815; J1940

== ENCOUNTER 2023-11-09 23:41 | Emergency (ER) | payer MEDICARE, OTHER, SELFPAY ==
[2023-11-10 00:17] LABS: #Basophils 0.04 10x3/uL (0.0-0.2); #Eosinphils Less than 0.03 10x3/uL (0.0-0.7); %Basophils 0.6 % (0.0-1.0); %Lymphocytes 16.8 % (21.0-51.0); %Monocytes 10.1 % (0.0-10.0); %Neutrophils 72.4 % (42.0-75.0); Hematocrit 33.1 % (36.0-47.0); Hemoglobin 10.8 g/dL (12.0-16.0); Mean Corpuscular HGB CONC 32.6 g/dL (32.0-36.0); Mean Corpuscular Hemoglobin 29.3 pg (27.0-31.0); Mean Corpuscular Volume 89.7 fL (78.0-98.0); Mean Platelet Volume 9.7 fL (7.4-10.4); Platelet Count 298 10x3/uL (130-400); RBC Distribution Width 13.8 % (11.5-14.5); Red Blood Cell (RBC) Count 3.69 mill/uL (4.20-5.40)
[2023-11-10 00:52] LABS: Bacteria/HPF 3+ HPF (None Seen); Bilirubin Negative (Negative); Blood, Urine 3+ (Negative); CAUTI Indications for Culture Dysuria,urgency,freq; Clarity Extra Turbid (Clear); Glucose, Urine (Dipstick) 500 mg/dL (Negative); Ketone, Urine Negative (Negative); Leukocyte 500 Leu/uL (Negative); Nitrite Negative (Negative); Protein, Urine (Dipstick) 50 mg/dL (Neg-Trace); Specific Gravity, Urine 1.013 (1.002-1.036); Squamous Epithelial None Seen HPF (0-3); Urobilinogen Normal mg/dL (Less than 2); WBC/HPF Greater than 50 HPF (0-3); pH, Urine 5.5 (5.0-9.0)
[2023-11-10 01:07] LABS: Urine Culture Reflex Yes Yes
[2023-11-10 01:15] LABS: ALT (SGPT) 15 U/L (8-55); AST (SGOT) 18 U/L (5-34); Alkaline Phosphatase 131 U/L (40-110); Anion Gap 15 mmol/L (10-20); BUN (Urea Nitrogen) 49 mg/dL (9.8-20.1); Bilirubin, Total 0.4 mg/dL (0.2-1.2); Calc. Creatinine Clearance 0 mL/min (70-130); Calcium 9.2 mg/dL (7.8-10.44); Carbon Dioxide 21 mmol/L (23-31); Chloride 103 mmol/L (98-107); Estimated GFR 39; Globulin 4.6 g/dL (2.4-3.5); Glucose 293 mg/dL (83-110); Potassium 4.2 mmol/L (3.5-5.1); Protein, Total 7.6 g/dL (5.8-8.1); Sodium 135 mmol/L (136-145)
[2023-11-10] MEDS ORDERED: Morphine 2 MG/ML VIAL ONE (03:07)
[2023-11-10] MEDS ORDERED: Iopamidol-370 76% 500 ML MDV (1 ML CHARGE) ONE (13:36)
== END 2023-11-10 01:48 | disposition home or self-care (01) ==
LOC: ERS 23:41
DX: N39.0 Urinary tract infection, site not specified (principal); R31.9 Hematuria, unspecified; I25.2 Old myocardial infarction; E11.9 Type 2 diabetes mellitus without complications; I50.9 Heart failure, unspecified; Z55.6 Problems related to health literacy; Z79.899 Other long term (current) drug therapy
CPT/HCPCS: 36415; 74177; 80053; 81001; 85025; 87077; 87086; 87186; 96374; J2272; Q9967